=== PATIENT | female | born 1945 | race Caucasian/White ===

== ENCOUNTER → 2021-03-13 | Outpatient (CLI) | payer BC, MEDICARE ==
--- NOTE | 2021-03-13 09:09 | REP ---
INDICATION: ACUTE PAIN LFT SHOULDER COMPARISON: None. TECHNIQUE: AP, lateral, flexion/extension, and open-mouth views. FINDINGS: Generalized age-related osteopenia noted along with moderate multilevel degenerative spondylosis. Specific findings include chronic grade 1 anterolisthesis at C4-5 of approximately 4 mm along with focal advanced changes at C5-6 with endplate sclerosis, disc space narrowing and osteophytosis. Open mouth view demonstrates normal C1-C2 articulation and odontoid process. IMPRESSION: Multilevel degenerative changes most notably involving C4-5 and C5-6. <Electronically signed by Terell Nina > 03/13/21 0947
--- NOTE | 2021-03-13 09:11 | REP ---
INDICATION: ACUTE PAIN LFT SHOULDER COMPARISON: None. TECHNIQUE: Internal rotation, external rotation, and Y view. FINDINGS: Minimal age-related cortical irregularity and periarticular sclerosis at the acromioclavicular joint. The glenohumeral joint is intact and normal. Subacromial space is normal. No periarticular calcifications or loose bodies. No evidence for acute fracture or dislocation. IMPRESSION: Essentially age-related changes. <Electronically signed by Terell Nina > 03/13/21 0980
== END ==
LOC: M CLY 08:23
PROVIDERS: ATTEND Physician Assistant
DX: M25.512 Pain in left shoulder (principal); M62.838 Other muscle spasm; R20.2 Paresthesia of skin; M79.609 Pain in unspecified limb